=== PATIENT | male | born 1975 | race Caucasian/White ===

== ENCOUNTER 2017-10-24 09:54 | Emergency (ER) | payer BC ==
[~2017-10-24] VITALS: Ht 190.5 cm; Wt 139.0 kg
[~2017-10-24 09:54] MED LIST: PREDNISONE50 MG PO
[2017-10-24 12:29] VITALS: BP 142/71
== END 2017-10-24 12:30 | disposition home or self-care (01) ==
LOC: EME 09:54
DX: J02.0 Streptococcal pharyngitis (principal); Z91.018 Allergy to other foods
CPT/HCPCS: 87651 90; 99281; 99283; J0561